=== PATIENT | female | born 2000 | race Two or more races ===

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

== ENCOUNTER 2019-02-03 21:51 | Emergency (ER) | payer OTHER ==
[~2019-02-03] VITALS: Ht 160 cm; Wt 79.8 kg
[2019-02-03 23:45] LABS: BASO # 0.1 x10^3/uL (0.0-0.2); BASO % 1 % (0-3); EOS # 0.2 x10^3/uL (0.0-0.7); EOS % 2 % (0-3); HEMATOCRIT 38.8 % (36.0-47.0); HEMOGLOBIN 13.3 g/dL (12.0-15.5); LYMPH # 3.2 x10^3/uL (1.0-4.8); LYMPH % 30 % (24-48); MEAN CORPUSCULAR HEMOGLOBIN 30 pg (25-35); MEAN CORPUSCULAR HGB CONC 34 g/dL (31-37); MEAN CORPUSCULAR VOLUME 88 fL (79-100); MONO # 0.7 x10^3/uL (0.0-1.1); MONO % 7 % (0-9); NEUT # 6.7 x10^3uL (1.8-7.7); NEUT % 61 % (31-73); PLATELET COUNT 246 x10^3/uL (140-400); RED BLOOD COUNT 4.41 x10^6/uL (3.50-5.40); RED CELL DISTRIBUTION WIDTH 13.2 % (11.5-14.5)
--- NOTE | 2019-02-03 23:55 | RAD ---
OB ultrasound first semester HISTORY: Spotting and cramping Sonographic examination appearance was performed by transabdominal technique and multiple static images were obtained. There is a single live intrauterine . The heartbeat is confirmed at 160 beats for minute. Visualization of structures is limited at this early gestational age. Left ovary appears normal with normal blood flow measures 2.1 x 3.0 x 1.9 cm. The right ovary is not seen. The LMP of 10/28/2018 corresponds with a 14 weeks 0 day gestational age and estimated confinement of August 04, 2019. Estimated size by ultrasound is 14 weeks 1 day. The measurements as follows: BPD 2.3 cm 30 weeks 6 days Head circumference 9.5 cm 40 weeks 2 days Abdominal circumference 7.9 cm 40 weeks 2 days Femur length 0.4 cm 14 weeks 0 days IMPRESSION: 1. Single live intrauterine . 2. Size by ultrasound correlates with size by LMP. 3. No abnormality identified. A short-term follow-up ultrasound could be performed if clinically indicated otherwise a structural survey would be performed at 18-21 weeks gestational age. Electronically signed by: Nolberto Gardner III, MD (02/03/2019 11:52 PM) [employer]
[2019-02-04 00:01] LABS: CALCIUM 9.4 mg/dL (8.5-10.1); CREATININE 0.8 mg/dL (0.6-1.0); GFR 92.4; POTASSIUM 3.6 mmol/L (3.5-5.1)
[2019-02-04 00:07] LABS: ALBUMIN 3.1 g/dL (3.4-5.0); ALBUMIN/GLOBULIN RATIO 0.8 (1.0-1.7); TOTAL BILIRUBIN 0.1 mg/dL (0.2-1.0); TOTAL PROTEIN 7.2 g/dL (6.4-8.2)
[2019-02-04 00:10] LABS: BILIRUBIN,URINE NEGATIVE (NEG); CLARITY,URINE CLEAR; COLOR,URINE YELLOW; NITRITE,URINE NEGATIVE (NEG); PROTEIN,URINE NEGATIVE (NEG-TRACE); UROBILINOGEN,URINE 0.2 mg/dL (0.2 mg/dL)
[2019-02-04 00:17] LABS: BACTERIA,URINE 0 /HPF (0-FEW); RBC,URINE 0 /HPF (0-2); SQUAMOUS EPITHELIAL CELL,UR FEW /LPF
--- NOTE | 2019-02-04 00:27 | PHYS DOC ---
Past Medical History Past Medical History: Asthma, GERD Additional Past Medical Histor: GASTRIC ULCERS (SUNNY SAMS APRN) Past Surgical History: No Surgical History (SUNNY SAMS APRN) Alcohol Use: Occasionally Drug Use: Marijuana (SUNNY SAMS APRN) Adult General Chief Complaint Chief Complaint: VAGINAL BLEEDING HPI HPI Patient is a 18 year old female 1 para 0 currently 14 weeks who presents to the ED today complaining of cramping rated at 6 out of 10 intermittently for 2 days. Also complaining of spotting that began 2 days ago. Patient denies any fever. Denies any nausea vomiting. She states she has not followed up with any FLOAT OPERATOR because she does not have one. She states she also doesn't have insurance and was hoping her medical insurance will kick in before she has to see an FLOAT OPERATOR. (SUNNY SAMS APRN) Review of Systems Review of Systems Constitutional: Denies fever or chills [] Eyes: Denies change in visual acuity, redness, or eye pain [] HENT: Denies nasal congestion or sore throat [] Respiratory: Denies cough or shortness of breath [] Cardiovascular: No additional information not addressed in HPI [] GI: Reports abdominal cramping and spotting, denies nausea, vomiting, bloody stools or diarrhea [] : Denies dysuria or hematuria [] Musculoskeletal: Denies back pain or joint pain [] Integument: Denies rash or skin lesions [] Neurologic: Denies headache, focal weakness or sensory changes [] All other systems were reviewed and found to be within normal limits, except as documented in this note. (SUNNY SAMS APRN) Allergies Allergies Allergies Coded Allergies Type Severity Reaction Last Updated Verified No Known Drug Allergies 08/22/14 No (TEMITOPE SHETH MD) Physical Exam Physical Exam Constitutional: Well developed, well nourished, no acute distress, non-toxic appearance. [] HENT: Normocephalic, atraumatic, bilateral external ears normal, oropharynx moist, no oral exudates, nose normal. [] Eyes: PERRLA, EOMI, conjunctiva normal, no discharge. [] Neck: Normal range of motion, no tenderness, supple, no stridor. [] Cardiovascular:Heart rate regular rhythm, no murmur [] Lungs & Thorax: Bilateral breath sounds clear to auscultation [] Abdomen: Bowel sounds normal, soft, no tenderness, no masses, no pulsatile masses. [] Pelvic exam External pelvic appears normal, cervix is visualized, closed, no CMT, no adnexal tenderness. Trace amount of white discharge in the vaginal vault. Skin: Warm, dry, no erythema, no rash. [] Back: No tenderness, no CVA tenderness. [] Extremities: No tenderness, no cyanosis, no clubbing, ROM intact, no edema. [] Neurologic: Alert and oriented X 3, normal motor function, normal sensory function, no focal deficits noted. [] Psychologic: Affect normal, judgement normal, mood normal. [] (SUNNY SAMS APRN) Current Patient Data Vital Signs Vital Signs Date Time Temp Pulse Resp B/P (MAP) Pulse Ox O2 Delivery O2 Flow Rate FiO2 02/04/19 01:22 72 16 132/60 (84) 98 Room Air 02/03/19 22:15 99.1 99.1 (TEMITOPE SHETH MD) Lab Values Laboratory Tests Test 02/03/19 22:30 02/03/19 23:37 02/03/19 23:56 02/04/19 00:00 Chlamydia DNA Probe Positive (Negative) A Neisseria gonorrhoeae DNA Probe Negative (Negative) White Blood Count 11.0 x10^3/uL (4.0-11.0) Red Blood Count 4.41 x10^6/uL (3.50-5.40) Hemoglobin 13.3 g/dL (12.0-15.5) Hematocrit 38.8 % (36.0-47.0) Mean Corpuscular Volume 88 fL (79-100) Mean Corpuscular Hemoglobin 30 pg (25-35) Mean Corpuscular Hemoglobin Concent 34 g/dL (31-37) Red Cell Distribution Width 13.2 % (11.5-14.5) Platelet Count 246 x10^3/uL (140-400) Neutrophils (%) (Auto) 61 % (31-73) Lymphocytes (%) (Auto) 30 % (24-48) Monocytes (%) (Auto) 7 % (0-9) Eosinophils (%) (Auto) 2 % (0-3) Basophils (%) (Auto) 1 % (0-3) Neutrophils # (Auto) 6.7 x10^3uL (1.8-7.7) Lymphocytes # (Auto) 3.2 x10^3/uL (1.0-4.8) Monocytes # (Auto) 0.7 x10^3/uL (0.0-1.1) Eosinophils # (Auto) 0.2 x10^3/uL (0.0-0.7) Basophils # (Auto) 0.1 x10^3/uL (0.0-0.2) Maternal Serum HCG Beta Subunit 24783 mIU/mL (0-5) H Sodium Level 137 mmol/L (136-145) Potassium Level 3.6 mmol/L (3.5-5.1) Chloride Level 103 mmol/L (98-107) Carbon Dioxide Level 22 mmol/L (21-32) Anion Gap 12 (6-14) Blood Urea Nitrogen 11 mg/dL (7-20) Creatinine 0.8 mg/dL (0.6-1.0) Estimated GFR (Cockcroft-Gault) 92.4 BUN/Creatinine Ratio 14 (6-20) Glucose Level 94 mg/dL (70-99) Calcium Level 9.4 mg/dL (8.5-10.1) Total Bilirubin 0.1 mg/dL (0.2-1.0) L Aspartate Amino Transferase (AST) 16 U/L (15-37) Alanine Aminotransferase (ALT) 32 U/L (14-59) Alkaline Phosphatase 55 U/L (46-116) Total Protein 7.2 g/dL (6.4-8.2) Albumin 3.1 g/dL (3.4-5.0) L Albumin/Globulin Ratio 0.8 (1.0-1.7) L Urine Collection Type Unknown Urine Color Yellow Urine Clarity Clear Urine pH 6.0 Urine Specific [place] 1.025 Urine Protein Negative mg/dL (NEG-TRACE) Urine Glucose (UA) Negative mg/dL (NEG) Urine Ketones (Stick) Negative mg/dL (NEG) Urine Blood Negative (NEG) Urine Nitrite Negative (NEG) Urine Bilirubin Negative (NEG) Urine Urobilinogen Dipstick 0.2 mg/dL (0.2 mg/dL) Urine Leukocyte Esterase Negative (NEG) Urine RBC 0 /HPF (0-2) Urine WBC 1-4 /HPF (0-4) Urine Squamous Epithelial Cells Few /LPF Urine Bacteria 0 /HPF (0-FEW) Urine Mucus Mod /LPF POC Urine HCG, Qualitative Hcg positive (Negative) Laboratory Tests 02/03/19 23:37 Laboratory Tests 02/03/19 23:37 Microbiology 02/03/19 Wet Prep - Final, Complete (TEMITOPE SHETH MD) EKG EKG [] (SUNNY SAMS APRN) Radiology/Procedures Radiology/Procedures []PROCEDURE: PREG 1ST TRIMESTER OB ultrasound first semester HISTORY: Spotting and cramping Sonographic examination appearance was performed by transabdominal technique and multiple static images were obtained. There is a single live intrauterine . The heartbeat is confirmed at 160 beats for minute. Visualization of structures is limited at this early gestational age. Left ovary appears normal with normal blood flow measures 2.1 x 3.0 x 1.9 cm. The right ovary is not seen. The LMP of 10/28/2018 corresponds with a 14 weeks 0 day gestational age and estimated confinement of August 04, 2019. Estimated size by ultrasound is 14 weeks 1 day. The measurements as follows: BPD 2.3 cm 30 weeks 6 days Head circumference 9.5 cm 40 weeks 2 days Abdominal circumference 7.9 cm 40 weeks 2 days Femur length 0.4 cm 14 weeks 0 days IMPRESSION: 1. Single live intrauterine . 2. Size by ultrasound correlates with size by LMP. 3. No abnormality identified. A short-term follow-up ultrasound could be performed if clinically indicated otherwise a structural survey would be performed at 18-21 weeks gestational age. Electronically signed by: Jodi Whalen III, MD (02/03/2019 11:52 PM) [facility] DICTATED and SIGNED BY: JODI WHALEN III, MD DATE: 02/03/19 5612 (SUNNY SAMS APRN) Course & Med Decision Making Course & Med Decision Making Pertinent Labs and Imaging studies reviewed. (See chart for details) This is a 18-year-old female patient 1 para 0 currently 14 weeks presenting to the ED today with lower abdominal cramping and spotting that began 2 days ago. Positive urine hCG, CBC with a normal WBC, CMP with no acute findings, OB ultrasound noted for an IUP 14 weeks heartbeat 160. White prep noted for BV-discharge and Flagyl. Beta hcg 63,889, Urine analysis is negative for infection. Blood group A positive. Patient is in no distress. He has no OB, provided patient an FLOAT OPERATOR for follow-up as an outpatient. Discharged with instructions to maintain pelvic rest until seen by the OB. Provided return precautions and discharged in stable condition. (SUNNY SAMS APRN) Course & Med Decision Making Staff Physician Addendum: I was working in the ER during the course of this patient's visit. I was available for consultation as needed, but I was not directly involved in the care of this patient. (TEMITOPE SHTEH MD) Dragon Disclaimer Dragon Disclaimer This electronic medical record was generated, in whole or in part, using a voice recognition dictation system. (SUNNY SAMS APRN) Departure Departure Impression: Primary Impression: Abdominal pain during Additional Impression: BV (bacterial vaginosis) Disposition: HOME, SELF-CARE Condition: STABLE Referrals: NO PCP (PCP) PALMA FATIMA MD Call her office and set up a follow up appointment as soon as you can Patient Instructions: Abdominal Pain During , [id number], Bacterial Vaginosis, [id number] Additional Instructions: You were evaluated in the emergency room for abdominal cramping and . You have bacterial vaginosis, we put you on antibiotics, ensure you complete them. Please maintain pelvic rest, no sex, no strenuous activities until seen by the FLOAT OPERATOR. We provided you an FLOAT OPERATOR contact the office tomorrow and set up a follow-up appointment. You can take Tylenol as needed for pain. Scripts Metronidazole (FLAGYL) 500 Mg Tablet 1 TAB PO BID, #14 TAB Prov: SUNNY SAMS APRN 02/04/19 Problem Qualifiers Primary Impression: Abdominal pain during Trimester: second trimester Qualified Codes: O26.892 - Other specified related conditions, second trimester; R10.9 - Unspecified abdominal pain SUNNY SAMS APRN Feb 04, 2019 00:27 TEMITOPE SHETH MD Feb 09, 2019 08:25
[2019-02-04] MEDS ORDERED: METR500T PO (00:50)
[2019-02-04 01:22] VITALS: BP 132/60
[2019-02-05 13:17] LABS: GC PROBE Negative (Negative)
--- NOTE | 2019-02-06 11:34 | VNOTE ---
CALL BACK NOTE CALL BACK Microbiology 02/03/19 Wet Prep - Final, Complete Positive for chlamydia, not treated, left a voicemail for patient SUNNY SAMS APRN Feb 06, 2019 11:34
== END 2019-02-04 01:22 | disposition home or self-care (01) ==
LOC: ER 21:51
DX: O23.592 Infection of other part of genital tract in pregnancy, second trimester (principal); B96.89 Other specified bacterial agents as the cause of diseases classified elsewhere; O99.512 Diseases of the respiratory system complicating pregnancy, second trimester; O99.612 Diseases of the digestive system complicating pregnancy, second trimester; K21.9 Gastro-esophageal reflux disease without esophagitis; J45.909 Unspecified asthma, uncomplicated; Z3A.14 14 weeks gestation of pregnancy
CPT/HCPCS: 76801; 80053; 81001; 81025; 84702; 85025; 86850; 86900; 86901; 87491; 87591; 99285; Q0111; 36415

== ENCOUNTER 2019-05-05 18:30 | Observation (INO) | payer OTHER ==
[~2019-05-05 18:30] MED LIST changes: +METR500T PO
[2019-05-05] MEDS ORDERED: IV RINGERS,LACTATED 1000ML 1,000 ML IV SCH (18:35)
[2019-05-05 19:17] LABS: BILIRUBIN,URINE NEGATIVE (NEG); CLARITY,URINE CLEAR; COLOR,URINE AMBER; NITRITE,URINE NEGATIVE (NEG); PROTEIN,URINE NEGATIVE (NEG-TRACE); UROBILINOGEN,URINE 0.2 mg/dL (0.2 mg/dL)
[2019-05-05 19:41] LABS: BACTERIA,URINE 0 /HPF (0-FEW); RBC,URINE OCC /HPF (0-2); SQUAMOUS EPITHELIAL CELL,UR OCC /LPF; WBC,URINE OCC /HPF (0-4)
== END 2019-05-05 21:20 | disposition home or self-care (01) ==
LOC: 3 SO LND 18:30
PROVIDERS: ADMIT Obstetrics & Gynecology; ATTEND Obstetrics & Gynecology
DX: O26.892 Other specified pregnancy related conditions, second trimester (principal); R10.30 Lower abdominal pain, unspecified; Z3A.27 27 weeks gestation of pregnancy
CPT/HCPCS: 81001; G0378; G0379; J7120

== ENCOUNTER 2021-05-02 00:50 | Emergency (ER) | payer SELFPAY ==
[~2021-05-02] VITALS: Ht 157.5 cm; Wt 109.0 kg
[~2021-05-02 00:50] MED LIST changes: -OMEP40CA5 PO; +OMEP40CA7 PO
[2021-05-02] MEDS ORDERED: AMOX500T PO (01:00)
[2021-05-02 01:01] VITALS: BP 137/82
--- NOTE | 2021-05-02 01:01 | PHYS DOC ---
Past Medical History Past Medical History: Asthma, GERD Additional Past Medical Histor: GASTRIC ULCERS Past Surgical History: No Surgical History Smoking Status: Never Smoker Alcohol Use: Occasionally Drug Use: Marijuana General Adult EDM: Chief Complaint: EARACHE/EAR PAIN HPI: HPI: Patient is a 21 year old female presents with a chief complaint of left ear pain and sore throat x3 days. Symptoms progressively worse since onset. She denies any fevers or chills cough chest pain or shortness of breath. Review of Systems: Review of Systems: Constitutional: Denies fever or chills. [] Eyes: Denies change in visual acuity. [] HENT: Denies nasal congestion Positive sore throat. [] Positive ear pain Respiratory: Denies cough or shortness of breath. [] Cardiovascular: Denies chest pain or edema. [] GI: Denies abdominal pain, nausea, vomiting, bloody stools or diarrhea. [] : Denies dysuria. [] Musculoskeletal: Denies back pain or joint pain. [] Integument: Denies rash. [] Neurologic: Denies headache, focal weakness or sensory changes. [] Endocrine: Denies polyuria or polydipsia. [] Lymphatic: Denies swollen glands. [] Psychiatric: Denies depression or anxiety. [] Heart Score: C/O Chest Pain: N/A Risk Factors: Risk Factors: DM, Current or recent (<one month) smoker, HTN, HLP, family history of CAD, obesity. Risk Scores: Score 0 - 3: 2.5% MACE over next 6 weeks - Discharge Home Score 4 - 6: 20.3% MACE over next 6 weeks - Admit for Clinical Observation Score 7 - 10: 72.7% MACE over next 6 weeks - Early Invasive Strategies Allergies: Allergies: Allergies Coded Allergies Type Severity Reaction Last Updated Verified No Known Drug Allergies 08/22/14 No Physical Exam: PE: Constitutional: Well developed, well nourished, no acute distress, non-toxic appearance. [] HENT: Normocephalic, atraumatic, bilateral external ears normal, oropharynx moist, no oral exudates, nose normal. [Left ear TM with erythema debris in the canal , postnasal drip] Eyes: PERRLA, EOMI, conjunctiva normal, no discharge. [] Neck: Normal range of motion, no tenderness, supple, no stridor. [] Cardiovascular:Heart rate regular rhythm, no murmur [] Lungs & Thorax: Bilateral breath sounds clear to auscultation [] Abdomen: Bowel sounds normal, soft, no tenderness, no masses, no pulsatile masses. [] Skin: Warm, dry, no erythema, no rash. [] Back: No tenderness, no CVA tenderness. [] Extremities: No tenderness, no cyanosis, no clubbing, ROM intact, no edema. [] Neurologic: Alert and oriented X 3, normal motor function, normal sensory function, no focal deficits noted. [] Psychologic: Affect normal, judgement normal, mood normal. [] EKG: EKG: [] Radiology/Procedures: Radiology/Procedures: [] Course & Med Decision Making: Course & Med Decision Making Pertinent Labs and Imaging studies reviewed. (See chart for details) [] Dragon Disclaimer: Dragon Disclaimer: This electronic medical record was generated, in whole or in part, using a voice recognition dictation system. Departure Departure Impression: Primary Impression: Acute otitis media Disposition: HOME / SELF CARE / HOMELESS Condition: STABLE Referrals: NO PCP (PCP) Patient Instructions: Otitis Media, Adult Scripts Amoxicillin (AMOXICILLIN) 500 Mg Tablet 1 TAB PO BID, #20 TAB Prov: SHLOMO BELTRAN DO 05/02/21 SHLOMO BELTRAN DO May 02, 2021 01:01
== END 2021-05-02 01:16 | disposition home or self-care (01) ==
LOC: ER 00:50
DX: H66.92 Otitis media, unspecified, left ear (principal); J02.9 Acute pharyngitis, unspecified; K21.9 Gastro-esophageal reflux disease without esophagitis; J45.909 Unspecified asthma, uncomplicated
CPT/HCPCS: 99283